=== PATIENT | female | born 1990 | race Caucasian/White ===

== ENCOUNTER 2018-05-09 12:44 | Emergency (ER) | payer OTHER | END 2018-05-09 13:18 | disposition home or self-care (01) | LOC: FTE 12:44 | DX: G44.85 Primary stabbing headache (principal); Z76.0 Encounter for issue of repeat prescription | CPT/HCPCS: 99283; Z7502 ==

== ENCOUNTER 2018-08-22 10:16 | Emergency (ER) | payer OTHER ==
[2018-08-22] MEDS ORDERED: DEXAMETHASONE 10 MG/ML 1 ML INJ IM (12:30)
[2018-08-22] MEDS ORDERED: METHYLPREDNISOLONE ACET 40 MG/ML 1 ML IM (12:30)
[2018-08-22] MEDS: METHYLPREDNISOLONE ACET 80 MG/ML 1 ML IM (12:34)
[2018-08-22] MEDS: DEXAMETHASONE 10 MG/ML 1 ML INJ IM (12:34)
== END 2018-08-22 12:43 | disposition home or self-care (01) ==
LOC: FTE 10:16
DX: G44.85 Primary stabbing headache (principal); H53.2 Diplopia
CPT/HCPCS: 96372; 99284-25